=== PATIENT | male | born 1950 | race African-American/Black ===

== ENCOUNTER 2016-11-11 21:33 | Inpatient (IN) | payer MEDICARE ==
--- NOTE | ~2016-11-11 | A ---
[facility] Nutrition Therapy DATE: 11/14/16 Patient: ANGELA REILLY Physician: HARMVALDEZ Address: [address] [facility] Room/Bed: [address], Zip: [place] [address] Admit Date: 11/11/16 Date of : [birth year] Height: 6 1 Weight: [phone] NUTRITIONAL ASSESSMENT: REASON: CONSULT "LOW WEIGHT" PATIENT ADMITTED FOR SI AND DETOX PMH: HTN, HEP C, CHRONIC BACK PAIN, LONG HX OPIOID ABUSE Anthropometrics: HT: 6'1", WT: 202#, BMI: 26.6 Labs: NO LABS AVAILABLE Meds: CELEXA, SEROQUEL, DETOX PROTOCOL, MVI Assessment: PATIENT IS A 65 Y/O MALE ADMITTED FOR SI AND HEROIN DETOX. PATIENT IS CURRENTLY DISABLED, HOMELESS, SMOKES A 1/2 PPD, HAS DAILY HEROIN AND XANAX USE, AND OCCASIONAL CANNABIS USE. UPON ADMIT PATIENT STATED A POOR APPETITE, WITH A 40# WEIGHT LOSS OVER LAST SEVERAL MONTHS, AND HE IS NOT SLEEPING. WEIGHT HX PER MEDITECH SHOWS A 16# WEIGHT GAIN OVER LAST 7 MONTHS. NURSING REPORTS CONSISTENTLY GOOD PO INTAKES. RD ASSESSED PATIENT 04/18/16- NOTE REVIEWED. IT IS NOTED THAT PATIENT HAS BEEN NON-COMPLIANT WITH MEDICATIONS. PATIENT DID NOT SCORE ANY NUTRITIONAL RISK POINTS. CURRENT PSYCH MEDS MAY CAUSE WEIGHT AND APPETITE FLUCTUATIONS. PATIENT'S BMI IS ABOVE A HEALTHY RANGE OF 19-25. THERE ARE NO SKIN OR GI ISSUES NOTED ATT. PATIENT IS ON A REGULAR DIET WITH NO CAFFEINE AND LARGE PORTION ENTREES. Dx: NO NUTRITION DX Intervention: 1. REGULAR DIET, 2. MEDS PER MD, 3. DETOX, 4. PSYCH Monitoring, Evaluation and Goals: 1. ADEQUATE PO INTAKES >50% OF MEALS 2. PREVENT, CORRECT MICRO/MACRO NUTRIENT DEFICIENCIES 3. PREVENT FURTHER WEIGHT GAIN MONITOR: WEIGHTS, LABS, PO/FLUID INTAKES Recommendations: 1. CONTINUE REGULAR DIET WITH NO CAFFEINE TOLERATED. RECOMMEND D/Cing LARGE PORTION ENTREES D/T 16# WEIGHT GAIN OVER LAST 7 MONTHS AND NO NUTRITIONAL NEED FOR INCREASED CALORIC INTAKE 2. ENCOURAGE ADEQUATE FLUID AND PO INTAKES [facility] Nutrition Therapy DATE: 11/14/16 Patient: ANGELA REILLY Physician: CRYSTAL Address: [address] [place] [address] Room/Bed: [address] State, Zip: [place] [address] Admit Date: 11/11/16 Date of : [birth year] Height: 6 1 Weight: [phone] 3. OBATIN WEIGHTS ROUTINELY (EVERY 3-4 DAYS) TO ENSURE PATIENT RECEIVES ADEQUATE NUTRIENT INTAKES RD TO F/U PER PROTOCOL AND PRN R/T PATIENT NOT AT NUTRITIONAL RISK ATT Respectfully, YAQUELIN MCLAIN, RD, LD [facility] cc: client file
--- NOTE | ~2016-11-11 | HP ---
Unit #: [id number] #: [id number] Patient: ANGELA REILLY [id number] [place] [address] [id number] MR#: [id number] NAME: ANGELA REILLY ROOM: [facility] Age: 65 Sex: M Admission Date: 11/11/2016 : 1950 Attending Physician: Meño Montemayor M.D. Admitting Physician: Meño Montemayor M.D. Primary Care Physician: Generic Doctor Not In System HISTORY AND PHYSICAL HISTORY OF PRESENT ILLNESS Angela is a 65-year-old male admitted on 11/11/2016 to [facility] for detox from heroin and Xanax. PAST MEDICAL HISTORY Hypertension. PAST SURGICAL HISTORY Cervical spine repair after a fracture. ALLERGIES No known drug allergies. SOCIAL HISTORY Smokes 1/2 pack of cigarettes daily. No alcohol use. Does report daily use of heroin and Xanax. He is currently and homeless. FAMILY HISTORY Noncontributory. REVIEW OF SYSTEMS CONSTITUTIONAL: No fever or chills. HEENT: Denies any sore throat, ear pain or runny nose. CARDIOVASCULAR: Denies chest pain, irregular heart rhythm or palpitations. CHEST: Denies shortness of breath or cough. No hemoptysis. GASTROINTESTINAL: Denies nausea, vomiting, diarrhea or chronic constipation. ENDOCRINE: Denies history of increased thirst or urination. No recent significant weight loss or gain. GENITOURINARY: Denies dysuria, frequency, or hematuria. SKIN: Denies any rashes. HEMATOLOGIC: Denies history of increased bleeding or bruising. MUSCULOSKELETAL: Denies any hot, swollen joints. No generalized muscle pain. NEUROLOGIC: Denies problems with vision or speech. No frequent, severe headaches. No numbness, tingling or weakness in any extremities. Denies loss of bladder or bowel control. CURRENT MEDICATIONS 1. Celexa. 2. Seroquel. 3. Doxepin. 4. Norvasc. Unit #: [id number] #: [id number] Patient: ANGELA REILLY PHYSICAL EXAMINATION GENERAL: Alert, oriented, in no acute distress. VITAL SIGNS: Blood pressure 143/91, heart rate 72. HEIGHT: 6 feet 4. WEIGHT: 200 pounds. SKIN: Warm and dry without rash or lesion. HEENT: Normocephalic. TMs not viewed. Oral and nasal passages clear. Conjunctivae clear. PERRLA. EOMs intact. NECK: Supple without lymphadenopathy or thyromegaly. HEART: Regular rate and rhythm without murmur. LUNGS: Clear. ABDOMEN: Soft, nontender, without masses or hepatosplenomegaly. : Not done. EXTREMITIES: No evidence of cyanosis, clubbing or edema. Moves all without focal deficit. NEUROLOGICAL: Grossly within normal limits. Cranial Nerves: II: Visual jacome are intact. III, IV AND : Extraocular movements are intact. Pupils are equal, round and reactive to light. V: Facial sensation is grossly normal. VII: Facial movements and expression are normal. VIII: Auditory acuity grossly intact. IX, X: Uvula is midline. Phonation is normal. XI: Patient shrugs shoulders and turns head normally. XII: Tongue protrudes in the midline. Sensory and Motor Function: Sensory and motor sensation is grossly normal. Motor: moves all extremities well. Coordination: Gait is normal. Deep Tendon Reflexes: Intact. IMPRESSION 1. Psychiatric admission. 2. Hypertension. RECOMMENDATIONS PSYCHIATRIC: Per psychiatrist. MEDICAL: No contraindications to participate in facility's activities. MEDICAL PROGNOSIS Good. MEDICAL CONDITION Stable. Dictated by... Cristal West/elizabeth TD: 11/12/2016 15:29 JOB #: [id number] Unit #: [id number] #: [id number] Patient: ANGELA REILLY HISTORY AND PHYSICAL Page 1 of 1 X NELIA PÉREZ APRN HISTORY AND PHYSICAL
[2016-11-14 10:25] LABS: AMPHETAMINE NEG (NEG); BARBITURATES NEG (NEG); BENZODIAZEPINES NEG (NEG); COCAINE NEG (NEG); MARIJUANA NEG (NEG); OPIATES POS (NEG); TRICYCLIC ANTIDEPRESSANTS POS (NEG); U METHADONE NEG (NEG)
== END 2016-11-15 15:00 | disposition home or self-care (01) | DRG 897 ==
LOC: P1E 21:33
PROVIDERS: Psychiatry & Neurology Psychiatry
PROC: HZ2ZZZZ Detoxification Services for Substance Abuse Treatment (ICD-10-PCS; principal; 2016-11-11)
DX: F11.20 Opioid dependence, uncomplicated (principal); I10 Essential (primary) hypertension; F32.9 Major depressive disorder, single episode, unspecified; Z59.0 Homelessness
CPT/HCPCS: 80307